=== PATIENT | male | born 1970 | race Caucasian/White ===

== ENCOUNTER 2016-12-09 19:00 | Emergency (ER) | payer OTHER ==
--- NOTE | 2016-12-09 21:10 | ED NURSING NOTES ---
Clinical Report - Nurses [facility] [address] [place] [address] 12/09/2016 19:02 Patient: ALEJANDRA FRENCH TRIAGE Triage time 19:33. Acuity: LEVEL 4. Chief Complaint: INJURY TO RIGHT KNEE. 19:38. Alert. SEPSIS SCREEN: Sepsis Screen. Negative (no infection suspected/documented). LAURA COMA SCORE: [place] Coma Scale: 15- eyes open spontaneously (4); best verbal response- oriented x 4 (5); best motor response- obeys commands (6). --19:38 Saul Marquez R.N. 19:33 12/09/16. BP: 129/78. HR: 68. RR: 16. O2 saturation: 97%. Temp: 98.5 F (oral). Pain level now: 08/25. --19:38 Saul Marquez R.N. Weight: 95.2 kg stated. Height/Length: 68 inches Per Patient. BMI: 31.9. --19:36 Saul Marquez R.N. Medications None. --19:35 Saul Marquez R.N. Medication/allergy information source: the patient. --19:38 Saul Marquez R.N. Allergies No Known Drug Allergy. --19:35 Saul Marquez R.N. History Arrived by private vehicle. Historian: patient. Accompanied by friend. Primary physician (None). This occurred today. Occurred at home. He sustained a laceration from a sharp edge (moving ramp). Treatment FUNERAL SERVICE LICENSEE: None. PAST MEDICAL HX: Tetanus status: up-to-date. Immunizations: up-to-date. SOCIAL HX: Never smoker. Occasional alcohol use. No drug use. No infectious disease exposure. ABUSE ASSESSMENT: No report of abuse. FALL RISK ASSESSMENT: Fall risk assessment completed. No fall risk identified. NUTRITIONAL RISK ASSESSMENT: The nutritional risk assessment revealed no deficiencies. FUNCTIONAL ASSESSMENT: Functional assessment: no impairments noted. LEARNING NEEDS ASSESSMENT: The learning needs assessment revealed no barriers. SKIN INTEGRITY ASSESSMENT: Skin integrity risk assessment completed. No skin integrity risk identified. --19:38 Saul Marquez R.N. PROBLEMS: no known problems. ADDITIONAL SURGERIES: Adenoidectomy. Back Surgery. Carpal Tunnel Surgery. Tonsillectomy. --19:36 Saul Marquez R.N. Interventions ID band on patient. To treatment room. --19:38 Saul Marquez R.N. PHYSICAL ASSESSMENT 19:38. Ambulatory to room. GENERAL / NEURO / PSYCH: Oriented X 4. Alert. EXTREMITIES: Neuro-vascular status intact to the extremity. Right knee: subcutaneous 3.0 cm laceration with controlled bleeding. SKIN: Skin is warm and dry. --19:38 Saul Marquez R.N. NURSING PROGRESS NOTES 19:39. Two patient identifiers checked. Call light placed in reach. Bed placed in lowest position. Brakes of bed on. Patient ready for evaluation- chart flagged. --19:39 Saul Marquez R.N. 20:27 12/09/2016 LET Topical 1 application. Allergies verified and confirmed 5 rights. (Applied to right leg). --20:27 Saul Marquez R.N. 21:02. WOUND REPAIR: Wound repair performed by LOW ALTITUDE AIR DEFENSE GUNNER. Assisted by one tech. The wound is located on the right knee. The wound is 3.0cm in length. The wound is linear. Preparation: suture tray set-up with 1% lidocaine with epi. Wound cleansed per LOW ALTITUDE AIR DEFENSE GUNNER and irrigated per LOW ALTITUDE AIR DEFENSE GUNNER. Procedure: wound repaired with sutures. Post-procedure: he was stable, no complications, bleeding controlled and dressing applied. Total time of assist / procedure: 15 minutes. --21:16 Saul Marquez R.N. DISPOSITION / DISCHARGE Departure time: 21:14. Condition at departure: improved and stable. ( Discharge instructions reviewed by ALEX Fonseca). No learning barriers present. Discharge instructions provided and reviewed with the patient. Patient verbalized understanding. Written instructions provided in Wolof. The patient was discharged by the nurse practitioner. He was discharged home and accompanied by sign painter helper. He left the Emergency Department ambulatory and via private vehicle. Calender Roll Operator driving. FALL RISK ASSESSMENT: Fall risk assessment completed. No fall risk identified. --21:15 Saul Marquez R.N. Locked/Released at 12/09/2016 21:17 by Saul Marquez R.N.
--- NOTE | 2016-12-09 21:10 | ED ORDER SUMMARY ---
..... Patient: ALEJANDRA FRENCH OrderSheet [facility] VisitID: [id number] [address] [place] [address] 46y, M Registration Date/Time: 12/09/2016 ORDER SHEET Weight: 95.2 kg (stated) Allergies: No Known Drug Allergy GENERAL ORDERS: MEDICATION ORDERS: LET Topical 1 application (NOW) (20:27 12/09/2016 Adrianna Gillis per protocol) (20: Adrianna Ortiz.Robert.) IV FLUIDS: ORDER SHEET NOTES: [Electronically signed by Saul Marquez R.N. (21:17 12/09/2016)] [Electronically signed by Linda Fonseca PA-C (00:43 12/10/2016)] [Electronically locked/signed by Saul Marquez R.N. (21:17 12/09/2016)]
--- NOTE | 2016-12-09 21:10 | ED NURSING NOTES ---
Clinical Report - Nurses [facility] [address] [place] [address] 12/09/2016 19:02 Patient: ALEJANDRA FRENCH TRIAGE Triage time 19:33. Acuity: LEVEL 4. Chief Complaint: INJURY TO RIGHT KNEE. 19:38. Alert. SEPSIS SCREEN: Sepsis Screen. Negative (no infection suspected/documented). LAURA COMA SCORE: [place] Coma Scale: 15- eyes open spontaneously (4); best verbal response- oriented x 4 (5); best motor response- obeys commands (6). --19:38 Saul Marquez R.N. 19:33 12/09/16. BP: 129/78. HR: 68. RR: 16. O2 saturation: 97%. Temp: 98.5 F (oral). Pain level now: 08/25. --19:38 Saul Marquez R.N. Weight: 95.2 kg stated. Height/Length: 68 inches Per Patient. BMI: 31.9. --19:36 Saul Marquez R.N. Medications None. --19:35 Saul Marquez R.N. Medication/allergy information source: the patient. --19:38 Saul Marquez R.N. Allergies No Known Drug Allergy. --19:35 Saul Marquez R.N. History Arrived by private vehicle. Historian: patient. Accompanied by friend. Primary physician (None). This occurred today. Occurred at home. He sustained a laceration from a sharp edge (moving ramp). Treatment QUALITY ASSURANCE SUPERVISOR FINAL: None. PAST MEDICAL HX: Tetanus status: up-to-date. Immunizations: up-to-date. SOCIAL HX: Never smoker. Occasional alcohol use. No drug use. No infectious disease exposure. ABUSE ASSESSMENT: No report of abuse. FALL RISK ASSESSMENT: Fall risk assessment completed. No fall risk identified. NUTRITIONAL RISK ASSESSMENT: The nutritional risk assessment revealed no deficiencies. FUNCTIONAL ASSESSMENT: Functional assessment: no impairments noted. LEARNING NEEDS ASSESSMENT: The learning needs assessment revealed no barriers. SKIN INTEGRITY ASSESSMENT: Skin integrity risk assessment completed. No skin integrity risk identified. --19:38 Saul Marquez R.N. PROBLEMS: no known problems. ADDITIONAL SURGERIES: Adenoidectomy. Back Surgery. Carpal Tunnel Surgery. Tonsillectomy. --19:36 Saul Marquez R.N. Interventions ID band on patient. To treatment room. --19:38 Saul Maqruez R.N. PHYSICAL ASSESSMENT 19:38. Ambulatory to room. GENERAL / NEURO / PSYCH: Oriented X 4. Alert. EXTREMITIES: Neuro-vascular status intact to the extremity. Right knee: subcutaneous 3.0 cm laceration with controlled bleeding. SKIN: Skin is warm and dry. --19:38 Saul Marquez R.N. NURSING PROGRESS NOTES 19:39. Two patient identifiers checked. Call light placed in reach. Bed placed in lowest position. Brakes of bed on. Patient ready for evaluation- chart flagged. --19:39 Saul Marquez R.N. 20:27 12/09/2016 LET Topical 1 application. Allergies verified and confirmed 5 rights. (Applied to right leg). --20:27 Saul Marquez R.N. 21:02. WOUND REPAIR: Wound repair performed by FEED MILLER. Assisted by one tech. The wound is located on the right knee. The wound is 3.0cm in length. The wound is linear. Preparation: suture tray set-up with 1% lidocaine with epi. Wound cleansed per FEED MILLER and irrigated per FEED MILLER. Procedure: wound repaired with sutures. Post-procedure: he was stable, no complications, bleeding controlled and dressing applied. Total time of assist / procedure: 15 minutes. --21:16 Saul Marquez R.N. DISPOSITION / DISCHARGE Departure time: 21:14. Condition at departure: improved and stable. ( Discharge instructions reviewed by ALEX Fonseca). No learning barriers present. Discharge instructions provided and reviewed with the patient. Patient verbalized understanding. Written instructions provided in Maltese. The patient was discharged by the nurse practitioner. He was discharged home and accompanied by house director. He left the Emergency Department ambulatory and via private vehicle. Plaster Pattern Caster driving. FALL RISK ASSESSMENT: Fall risk assessment completed. No fall risk identified. --21:15 Saul Marquez R.N. Locked/Released at 12/09/2016 21:17 by Saul Marquez R.N.
--- NOTE | 2016-12-09 21:10 | ED CLINICAL REPORT ---
Clinical Report - Physicians/Mid Levels [facility] [address] [place] [address] 12/09/2016 19:02 Patient: ALEJANDRA FRENCH Time Seen: 20:49; initial patient contact. Arrived- By private vehicle. Historian- patient. HISTORY OF PRESENT ILLNESS Chief Complaint: Injury to right knee and Chief Complaint- He sustained a laceration from a sharp edge (moving ramp). The injury happened just prior to arrival. Occurred at home. The patient sustained a laceration from a sharp edge. Patient is experiencing mild pain. No other injury. REVIEW OF SYSTEMS The patient sustained a single laceration to the right leg. All systems otherwise negative, except as recorded above. PAST HISTORY See nurses notes. Tetanus immunization status is up-to-date. Problems: no known problems. Medications: None. Allergies: No Known Drug Allergy. SOCIAL HISTORY Never smoker. Occasional alcohol use. No drug use. ADDITIONAL NOTES The nursing notes have been reviewed with agreement regarding the chief complaint, HPI, ROS, PMH and patient medications and allergies. PHYSICAL EXAM Vital Signs: 12/09/2016 19:33 BP: 129/78. HR: 68. RR: 16. O2 saturation: 97%. Temp: 98.5 F. Pain level now: 2/10. Have been reviewed. Appearance: Alert. Oriented X3. No acute distress. Extremities: No soft-tissue tenderness in the lower extremities. Right knee: subcutaneous 2.5 cm laceration located in the infrapatellar area. SEE LACERATION PROCEDURE NOTE #1. Neurovascular intact distally. No ligamentous laxity present. No joint effusion. No limitation in ROM. Neuro, Vascular and Tendons: Vascular status intact. Sensation intact. Motor intact. Tendon function intact. Gait: Normal gait. PROGRESS AND PROCEDURES Laceration Repair: Time: 2032. Location: right knee. Per protocol, time-out completed immediately before the procedure. Length: 2.5 cm. Complexity: simple (local anesthesia used and sutured). Wound depth/shape- subcutaneous and linear and involving fascia and muscle. Wound is clean. Distal neuro/vascular/tendon status normal. No sensory deficit distally. Local anesthesia provided using LET and 1% lidocaine with epi. Prepped with Hibiclens. Wound explored, cleansed, irrigated and examined to the base in bloodless field extensively with normal saline. Closure of skin: interrupted 4-0 nylon (6 sutures). Post-procedure: he is stable and there are no complications. Bleeding is controlled and neuro-vascular status is intact distal to the wound (6 sutures). Dressing applied. Tetanus immunization up-to-date. Estimated blood loss: 0 mL. Course of Care: Patient is stable. Physical exam findings are improved. Symptoms better. Patient/family counseled. CLINICAL IMPRESSION Single deep laceration to the right lower leg.No foreign body present. INSTRUCTIONS Protect wound and keep wound area clean. You may wash wounds briefly, then dry. Sutures should be removed in ten days. No dietary restrictions. Warnings: COMPLICATIONS: Complications from this condition are possible. Future problems may include infection and scarring. GENERAL WARNINGS: Return or contact your physician immediately if your condition worsens or changes unexpectedly, if not improving as expected, or if other problems arise. OTC Medications: Take acetaminophen (Tylenol, Datril, etc.) and ibuprofen (Advil, Nuprin, etc.) according to label instructions. Available over the counter. Follow-up: Follow up with your doctor 7-10 days in seven for suture removal. Understanding of the discharge instructions verbalized by patient. (Electronically signed by Linda Fonseca PA-C 12/10/2016 0:43) Addenda for ALEJANDRA FRENCH [facility] VisitID: [id number] Date: 12/09/2016 12/09/2016 22:45 2 suture packs used in wound repair (Electronically signed by Saul Marquez R.N. - 12/09/2016 22:45)
--- NOTE | 2016-12-09 21:10 | ED CLINICAL REPORT ---
Clinical Report - Physicians/Mid Levels [facility] [address] [place] [address] 12/09/2016 19:02 Patient: ALEJANDRA FRENCH Time Seen: 20:49; initial patient contact. Arrived- By private vehicle. Historian- patient. HISTORY OF PRESENT ILLNESS Chief Complaint: Injury to right knee and Chief Complaint- He sustained a laceration from a sharp edge (moving ramp). The injury happened just prior to arrival. Occurred at home. The patient sustained a laceration from a sharp edge. Patient is experiencing mild pain. No other injury. REVIEW OF SYSTEMS The patient sustained a single laceration to the right leg. All systems otherwise negative, except as recorded above. PAST HISTORY See nurses notes. Tetanus immunization status is up-to-date. Problems: no known problems. Medications: None. Allergies: No Known Drug Allergy. SOCIAL HISTORY Never smoker. Occasional alcohol use. No drug use. ADDITIONAL NOTES The nursing notes have been reviewed with agreement regarding the chief complaint, HPI, ROS, PMH and patient medications and allergies. PHYSICAL EXAM Vital Signs: 12/09/2016 19:33 BP: 129/78. HR: 68. RR: 16. O2 saturation: 97%. Temp: 98.5 F. Pain level now: 2/10. Have been reviewed. Appearance: Alert. Oriented X3. No acute distress. Extremities: No soft-tissue tenderness in the lower extremities. Right knee: subcutaneous 2.5 cm laceration located in the infrapatellar area. SEE LACERATION PROCEDURE NOTE #1. Neurovascular intact distally. No ligamentous laxity present. No joint effusion. No limitation in ROM. Neuro, Vascular and Tendons: Vascular status intact. Sensation intact. Motor intact. Tendon function intact. Gait: Normal gait. PROGRESS AND PROCEDURES Laceration Repair: Time: 2032. Location: right knee. Per protocol, time-out completed immediately before the procedure. Length: 2.5 cm. Complexity: simple (local anesthesia used and sutured). Wound depth/shape- subcutaneous and linear and involving fascia and muscle. Wound is clean. Distal neuro/vascular/tendon status normal. No sensory deficit distally. Local anesthesia provided using LET and 1% lidocaine with epi. Prepped with Hibiclens. Wound explored, cleansed, irrigated and examined to the base in bloodless field extensively with normal saline. Closure of skin: interrupted 4-0 nylon (6 sutures). Post-procedure: he is stable and there are no complications. Bleeding is controlled and neuro-vascular status is intact distal to the wound (6 sutures). Dressing applied. Tetanus immunization up-to-date. Estimated blood loss: 0 mL. Course of Care: Patient is stable. Physical exam findings are improved. Symptoms better. Patient/family counseled. CLINICAL IMPRESSION Single deep laceration to the right lower leg.No foreign body present. INSTRUCTIONS Protect wound and keep wound area clean. You may wash wounds briefly, then dry. Sutures should be removed in ten days. No dietary restrictions. Warnings: COMPLICATIONS: Complications from this condition are possible. Future problems may include infection and scarring. GENERAL WARNINGS: Return or contact your physician immediately if your condition worsens or changes unexpectedly, if not improving as expected, or if other problems arise. OTC Medications: Take acetaminophen (Tylenol, Datril, etc.) and ibuprofen (Advil, Nuprin, etc.) according to label instructions. Available over the counter. Follow-up: Follow up with your doctor 7-10 days in seven for suture removal. Understanding of the discharge instructions verbalized by patient. (Electronically signed by Linda Fonseca PA-C 12/10/2016 0:43) Addenda for ALEJANDRA FRENCH [facility] VisitID: [id number] Date: 12/09/2016 12/09/2016 22:45 2 suture packs used in wound repair (Electronically signed by Saul Marquez R.N. - 12/09/2016 22:45)
--- NOTE | 2016-12-09 21:10 | ED ORDER SUMMARY ---
..... Patient: ALEJANDRA FRENCH OrderSheet [facility] VisitID: [id number] [address] [place] [address] 46y, M Registration Date/Time: 12/09/2016 ORDER SHEET Weight: 95.2 kg (stated) Allergies: No Known Drug Allergy GENERAL ORDERS: MEDICATION ORDERS: LET Topical 1 application (NOW) (20:27 12/09/2016 Adrianna Gillis per protocol) (20: Adrianna Ortiz.Robert.) IV FLUIDS: ORDER SHEET NOTES: [Electronically signed by Saul Marquez R.N. (21:17 12/09/2016)] [Electronically signed by Linda Fonseca PA-C (00:43 12/10/2016)] [Electronically locked/signed by Saul Marquez R.N. (21:17 12/09/2016)]
--- NOTE | 2016-12-10 00:44 | ED MAR SUMMARY ---
..... Medication Administration Record [facility] [address] [place] [address] Patient: ALEJANDRA FRENCH Visit ID: [id number] 46y, M Weight: 95.2 kg Height/Length: 68 in BMI: 31.9 ALLERGIES: No Known Drug Allergy Given 20:27 12/09/2016 Saul Marquez R.N. Medication Administered: LET [TOPICAL], Dose: 1 application Topical. Medication Ordered: LET Topical 1 application (NOW).
--- NOTE | 2016-12-10 00:44 | ED MAR SUMMARY ---
..... Medication Administration Record [facility] [address] [place] [address] Patient: ALEJANDRA FRENCH Visit ID: [id number] 46y, M Weight: 95.2 kg Height/Length: 68 in BMI: 31.9 ALLERGIES: No Known Drug Allergy Given 20:27 12/09/2016 Saul Marquez R.N. Medication Administered: LET [TOPICAL], Dose: 1 application Topical. Medication Ordered: LET Topical 1 application (NOW).
--- NOTE | 2016-12-10 00:44 | ED MED RECONCILIATION SUMMARY ---
Patient: ALEJANDRA FRENCH Medication Reconciliation Report [facility] VisitID: [id number] [address] [place] [address] 46y, M Registration Date/Time: 12/09/2016 Weight: 95.2 kg Height/Length: 68 in. BMI: 31.9 ALLERGIES: No Known Drug Allergy The patient's Home Medications are listed below: NONE. The source(s) of the original Home Medication information: patient The following Medications were given to the patient in the Emergency Department: LET [Topical] Topical 1 application, administered: 12/09/2016 8:27:00 PM The following Medications were prescribed to the patient: Take acetaminophen (Tylenol, Datril, etc.) and ibuprofen (Advil, Nuprin, etc.) according to label instructions. Available over the counter. -- Linda Fonseca PA-C
--- NOTE | 2016-12-10 00:44 | ED MED RECONCILIATION SUMMARY ---
Patient: ALEJANDRA FRENCH Medication Reconciliation Report [facility] VisitID: [id number] [address] [place] [address] 46y, M Registration Date/Time: 12/09/2016 Weight: 95.2 kg Height/Length: 68 in. BMI: 31.9 ALLERGIES: No Known Drug Allergy The patient's Home Medications are listed below: NONE. The source(s) of the original Home Medication information: patient The following Medications were given to the patient in the Emergency Department: LET [Topical] Topical 1 application, administered: 12/09/2016 8:27:00 PM The following Medications were prescribed to the patient: Take acetaminophen (Tylenol, Datril, etc.) and ibuprofen (Advil, Nuprin, etc.) according to label instructions. Available over the counter. -- Linda Fonseca PA-C
--- NOTE | 2016-12-10 00:44 | ED DISCHARGE INSTRUCTIONS ---
Patient: ALEJANDRA FRENCH General Instructions [facility] VisitID: [id number] [address] [place] [address] 46y, M Registration Date/Time: 12/09/2016 Single deep laceration to the right lower leg.No foreign body present. INSTRUCTIONS Protect wound and keep wound area clean. You may wash wounds briefly, then dry. Sutures should be removed in ten days. No dietary restrictions. Warnings: COMPLICATIONS: Complications from this condition are possible. Future problems may include infection and scarring. GENERAL WARNINGS: Return or contact your physician immediately if your condition worsens or changes unexpectedly, if not improving as expected, or if other problems arise. OTC Medications: Take acetaminophen (Tylenol, Datril, etc.) and ibuprofen (Advil, Nuprin, etc.) according to label instructions. Available over the counter. Follow-up: Follow up with your doctor 7-10 days in seven for suture removal. Understanding of the discharge instructions verbalized by patient. ADDITIONAL INFORMATION Laceration (All Closures) Alaceration is a cut through the skin. This will usually require stitches (sutures) or nessa if it is deep. Minor cuts may be treated with a surgical tape closure orskin glue. Home care The following guidelines will help you care for your laceration at home: Extremity, face, or trunk wounds Keep the wound clean and dry. If a bandage was applied and it becomes wet or dirty, replace it. Otherwise, leave it in place for the first 24 hours. If stitches or nessa were used, clean the wound daily. After removing the bandage, wash the area with soap and water. Use a wet cotton swab to loosen and remove any blood or crust that forms. The doctor may prescribe an antibiotic cream or ointment to prevent infection. Do not stop taking this medication until you have finished the prescribed course or the doctor tells you to stop. The doctor may also prescribe medications for pain. Follow the doctors instructions for taking these medications. You may remove the bandage to shower as usual after the first 24 hours, but do not soak the area in water (no swimming) until the stitches or nessa are removed. If surgical tape was used, keep the area clean and dry. If it becomes wet, blot it dry with a towel. If skin glue was used, do not scratch, rub, or pick at the adhesive film. Do not place tape directly over the film. Do not apply liquid, ointment, or creams to the wound while the film is in place. Do not clean the wound with peroxide and do not apply ointments. Avoid activities that cause heavy sweating until the film has fallen off. Protect the wound from prolonged exposure to sunlight or tanning lamps. You may shower as usual but do not soak the wound in water (no baths or swimming). The film will fall off by itself in 510 days. Scalp wounds During the first two days, you may carefully rinse your hair in the shower to remove blood, glass or dirt particles. After two days, you may shower and shampoo your hair normally. Do not soak your scalp in the tub or go swimming until the stitches or nessa have been removed. Talk with your doctor before applying any antibiotic ointment to the wound. Mouth wounds Eat soft foods to reduce pain. If the cut is inside of your mouth, clean by rinsing after each meal and at bedtime with a mixture of equal parts water and hydrogen peroxide (do not swallow!). Or, you can use a cotton swab to directly apply hydrogen peroxide onto the cut. Mouth wounds can be painful when eating. You may use an [id number] local numbing solution for pain relief. If this is not available, you may use any numbing solution for teething babies. You may apply this directly to the sores with a cotton-tip swab or with your finger. Follow-up care Follow up with your health care provider. Most skin wounds heal within ten days. Mouth and facial wounds heal within five days. However, even with proper treatment, a wound infection may sometimes occur. Therefore, you should check the wound daily for signs of infection listed below. Stitches should be removed from the face within five days; stitches and nessa should be removed from other parts of the body within 714 days. If dissolving stitches were used in the mouth, these will fall out or dissolve without the need for removal. If tape closures were used, remove them yourself if they have not fallen off after 7 days. Ifskin glue was used, the film will fall off by itself in 510 days. When to seek medical care Get prompt medical attention if any of these occur: Bleeding not controlled by direct pressure Signs of infection, including increasing pain in the wound, increasing wound redness or swelling, or pus coming from the wound Fever of 100.4F (38C) or higher, or as directed by your health care provider Stitches or nessa come apart or fall out or surgical tape falls off before 7 days Wound edges re-open You have been given the following additional information: Laceration, All (Electronically signed by Linda Fonseca PA-C 12/10/2016 0:43)
== END 2016-12-09 21:15 | disposition home or self-care (01) ==
LOC: ED SRH 19:00
DX: S81.011A Laceration without foreign body, right knee, initial encounter (principal); W26.8XXA Contact with other sharp object(s), not elsewhere classified, initial encounter; Y93.9 Activity, unspecified; Y92.009 Unspecified place in unspecified non-institutional (private) residence as the place of occurrence of the external cause; Y99.9 Unspecified external cause status